=== PATIENT | female | born 1995 | race Caucasian/White ===

== ENCOUNTER 2017-02-19 21:02 | Inpatient (IN) | payer OTHER, BC ==
[~2017-02-19] VITALS: Ht 160 cm; Wt 63.0 kg
[2017-02-19 20:56] VITALS: O2SAT 98
[2017-02-19 21:04] VITALS: BP 112/56; PULSE 89; RESP 20; TEMP 97.7; O2SAT 98
[2017-02-19] MEDS ORDERED: ceFAZolin 2 GM PREMIX 50 ML ONE (21:04)
[2017-02-19] MEDS ORDERED: DIPHTH/TETANUS/ACEL PERTUSSIS (BOOSTER) 0.5 ML VIAL/PFS IM ONE ×2 (21:05→21:15)
[2017-02-19] MEDS ORDERED: SODIUM CHLOR 0.9% 1000 ML INJ 1,000 ML IV SCH (21:06)
[2017-02-19 21:12] VITALS: O2SAT 100
[2017-02-19] MEDS ORDERED: ONDANSETRON HCL 4 MG/2 ML VIAL IVP ONE (21:15)
[2017-02-19] MEDS ORDERED: ceFAZolin 2 GM PREMIX 50 ML IV ONE (21:15)
[2017-02-19] MEDS ORDERED: MORPHINE SULFATE 4 MG/ML INJ IV ONE (21:15)
[2017-02-19] MEDS ORDERED: SODIUM CHLORIDE 0.9% FLUSH 10 ML FLUSH IVF PRN (21:15)
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
[2017-02-19 21:30] LABS: I-STAT POTASSIUM 3.4 MMOL/L (3.5-4.9); I-STAT SODIUM 141 MMOL/L (138-146)
[2017-02-19] MEDS ORDERED: LIDOCAINE 1%/EPINEPHrine 1:100,000 SOLN 20 ML VIAL INFIL ONE (21:30)
[2017-02-19 21:32] LABS: AUTOMATED NEUTROPHIL # 6.7 TH/MM3 (1.8-7.7); BASOPHIL % 0.3 % (0.0-2.0); EOSINOPHIL % 0.4 % (0.0-4.0); HEMATOCRIT 40.4 % (35.0-46.0); HEMO FLAGS DIFF FINAL; LYMPH % 31.4 % (9.0-44.0); LYMPHOCYTE # 3.4 TH/MM3 (1.0-4.8); MEAN CELL VOLUME 79.7 FL (80.0-100.0); MEAN CORPUSCULAR HEMOGLOBIN 27.8 PG (27.0-34.0); MEAN CORPUSCULAR HGB CONC 34.9 % (32.0-36.0); MONO % 5.3 % (0.0-8.0); NEUT % 62.6 % (16.0-70.0); PLATELET COUNT 272 TH/MM3 (150-450); RED BLOOD COUNT 5.07 MIL/MM3 (4.00-5.30); RED CELL DISTRIBUTION WIDTH 14.6 % (11.6-17.2); WHITE BLOOD COUNT 10.7 TH/MM3 (4.0-11.0)
[2017-02-19] MEDS ORDERED: SODIUM CHLORIDE 0.9% FLUSH 10 ML FLUSH IV FLUSH PRN (22:00)
[2017-02-19] MEDS ORDERED: Post-op Orders (for Pharmacy) MISC XX ONE (22:00)
[2017-02-19] MEDS ORDERED: oxyCODONE/ACETAMINOPHEN 5 MG/325 MG TAB PO PRN (22:00)
[2017-02-19] MEDS ORDERED: NALOXONE HCL 0.4 MG/ML AMP IV PRN (22:00)
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
[2017-02-19] MEDS ORDERED: IOHEXOL 350 MG/ML 10 ML VIAL (for RAD DIAG) IV ONE (22:10)
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
[2017-02-19 22:14] LABS: BACTERIA, URINE RARE /hpf; BLOOD, URINE MOD (NEG); GLUCOSE,URINE NEG (NEG); KETONE, URINE NEG (NEG); MUCUS URINE FEW /lpf (OCC); NITRITE,URINE NEG (NEG); PH, URINE 7.5 (5.0-8.5); SQUAMOUS EPITHELIAL CELL URINE <1 /hpf (0-5); URINE COLOR YELLOW (YELLW/STRAW)
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
[2017-02-19 22:15] LABS: COMMENT (UR) CATH-CULTURE IND; CULTURE IF INDICATED CATH CULTURE IND
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
[2017-02-19 22:18] LABS: APTT (PATIENT) 22.8 SEC (24.3-30.1); PROTHROMBIN TIME - PATIENT 11.4 SEC (9.8-11.6)
[2017-02-19 22:19] LABS: AMPHETAMINE, URINE NEG (NEG); BARBITURATES, URINE NEG (NEG); COCAINE, URINE NEG (NEG)
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
[2017-02-19 23:00] VITALS: BP 120/77; PULSE 104; PULSE 84; RESP 16; RESP 22; O2SAT 100; O2SAT 98
[2017-02-19] MEDS ORDERED: MORPHINE SULFATE 4 MG/ML INJ IV PUSH ONE (23:15)
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
--- NOTE | 2017-02-19 23:26 | PD ---
Physical Exam Time Seen by Provider: 23:24 Narrative I was asked by Dr. De Jesus to perform laceration repairs to the patient's bilateral anterior thighs. She has 2 lacerations to her right anterior thigh. She has one large laceration to the left medial anterior thigh. She has a large area of abrasion to the left lateral thigh with multiple small lacerations within this abrasion. Data Data Last Documented VS Vital Signs Date Time Temp Pulse Resp B/P Pulse Ox O2 Delivery O2 Flow Rate FiO2 02/19/17 21:12 100 02/19/17 21:12 Nasal Cannula 3 02/19/17 21:04 97.7 89 20 112/56 Orders Cefazolin 2 Gm Premix (Ancef 2 Gm Premix (02/19/17 21:04) Lbwo-Nyg-Efmytp (Booster) Inj (Boostrix (02/19/17 21:05) I-Stat Profile (02/19/17 21:06) I-Stat Creatinine (02/19/17 21:06) Complete Blood Count With Diff (02/19/17 21:06) Prothrombin Time / Inr (Pt) (02/19/17 21:06) Act Partial Throm Time (Ptt) (02/19/17 21:06) Type And Screen (02/19/17 21:06) Fibrinogen (02/19/17 21:06) Alcohol (Ethanol) (02/19/17 21:06) Urinalysis - C+S If Indicated (02/19/17 21:06) Chest, Single Ap (02/19/17 21:06) Pelvis, Ap Only (Routine) (02/19/17 21:06) Ct Brain W/O Iv Contrast(Rout) (02/19/17 21:06) Ct Cerv Spine W/O Contrast (02/19/17 21:06) Ct Abd/Pel W Iv Contrast(Rout) (02/19/17 21:06) Ct Thorax/ Chest W Iv Contrast (02/19/17 21:06) Ct Facial Bones W/O Iv Cont (02/19/17 21:06) Iv Access Insert/Monitor (02/19/17 21:06) Ecg Monitoring (02/19/17 21:06) Oximetry (02/19/17 21:06) Oxygen Administration (02/19/17 21:06) Urinary Catheter Insert/Apply (02/19/17 21:06) Cefazolin 2 Gm Premix (Ancef 2 Gm Premix (02/19/17 21:15) Morphine Inj (Morphine Inj) (02/19/17 21:15) Ondansetron Inj (Zofran Inj) (02/19/17 21:15) Wtzc-Yhm-Yptdqr (Booster) Inj (Boostrix (02/19/17 21:15) Sodium Chlor 0.9% 1000 Ml Inj (Ns 1000 M (02/19/17 21:06) Sodium Chloride 0.9% Flush (Ns Flush) (02/19/17 21:15) Drug Screen, Random Urine (02/19/17 21:06) Ed Urine Pregnancytest Poc (02/19/17 21:06) Femur (Ap & Lat/2vws) (02/19/17 21:09) Tibia/Fibula (Ap/Lat) (02/19/17 21:09) Ice/Cold Pack (02/19/17 21:09) Femur (Ap & Lat/2vws) (02/19/17 21:09) Lidocai-Epi 1%-1:100,000 Inj (Xylocaine- (02/19/17 21:30) Ct Thor Spine W/O Contrast (02/19/17 21:26) Ct Lumb Spine W/O Contrast (02/19/17 21:26) Admit Order (Ed Use Only) (02/19/17 21:50) Labs Laboratory Tests Test 02/19/17 02/19/17 02/19/17 21:05 21:10 21:50 Bedside Hemoglobin 13.9 G/DL Bedside Hematocrit 41.0 % Bedside Sodium 141 MMOL/L Bedside Potassium 3.4 MMOL/L Bedside Chloride 103 MMOL/L Bedside Blood Urea Nitrogen 17 MG/DL Bedside Creatinine 0.8 MG/DL Bedside Glucose 102 MG/DL Ethyl Alcohol Level LESS THAN 3 MG/DL White Blood Count 10.7 TH/MM3 Red Blood Count 5.07 MIL/MM3 Hemoglobin 14.1 GM/DL Hematocrit 40.4 % Mean Corpuscular Volume 79.7 FL Mean Corpuscular Hemoglobin 27.8 PG Mean Corpuscular Hemoglobin 34.9 % Concent Red Cell Distribution Width 14.6 % Platelet Count 272 TH/MM3 Mean Platelet Volume 8.7 FL Neutrophils (%) (Auto) 62.6 % Lymphocytes (%) (Auto) 31.4 % Monocytes (%) (Auto) 5.3 % Eosinophils (%) (Auto) 0.4 % Basophils (%) (Auto) 0.3 % Neutrophils # (Auto) 6.7 TH/MM3 Lymphocytes # (Auto) 3.4 TH/MM3 Monocytes # (Auto) 0.6 TH/MM3 Eosinophils # (Auto) 0.0 TH/MM3 Basophils # (Auto) 0.0 TH/MM3 CBC Comment DIFF FINAL Differential Comment Prothrombin Time 11.4 SEC Prothromb Time International 1.0 RATIO Ratio Activated Partial 22.8 SEC Thromboplast Time Fibrinogen 175 mg/dL Blood Type O NEGATIVE Antibody Screen NEGATIVE Blood Bank Comment Urine Color YELLOW Urine Turbidity CLEAR Urine pH 7.5 Urine Specific [place] 1.012 Urine Protein 30 mg/dL Urine Glucose (UA) NEG mg/dL Urine Ketones NEG mg/dL Urine Occult Blood MOD Urine Nitrite NEG Urine Bilirubin NEG Urine Urobilinogen LESS THAN 2.0 MG/DL Urine Leukocyte Esterase TRACE Urine RBC 33 /hpf Urine WBC 4 /hpf Urine Squamous Epithelial <1 /hpf Cells Urine Amorphous Sediment RARE Urine Bacteria RARE /hpf Urine Mucus FEW /lpf Microscopic Urinalysis Comment CATH-CULTURE IND Urine Opiates Screen NEG Urine Barbiturates Screen NEG Urine Amphetamines Screen NEG Urine Benzodiazepines Screen NEG Urine Cocaine Screen NEG Urine Cannabinoids Screen NEG MDM Supervised Visit with KENZIE: No Procedures Procedure Narrative LACERATION LOCATION: Anterior left thigh LENGTH: 10 cm NUMBER OF STITCHES/LILLIE: 14 sutures REPAIR: The area of the laceration was prepped with Betadine and sterilely draped. The laceration was infiltrated with 1% lidocaine with epinephrine. The wound was copiously irrigated and explored without evidence of foreign body , tendon injury or neurovascular injury. The wound was closed using 3. 0 Ethilon. This was a single layer repair. A sterile dressing was applied. The patient was advised to keep the dressing clean and dry. Patient tolerated the procedure well. LACERATION LOCATION: Anterior left thigh LENGTH: 6 cm NUMBER OF STITCHES/LILLIE: 13 sutures REPAIR: The area of the laceration was prepped with Betadine and sterilely draped. The laceration was infiltrated with 1% lidocaine with epinephrine. The wound was copiously irrigated and explored without evidence of foreign body , tendon injury or neurovascular injury. The wound was closed using 3. 0 Ethilon and 4. 0 Ethilon. This was a single layer repair. A sterile dressing was applied. The patient was advised to keep the dressing clean and dry. Patient tolerated the procedure well. LACERATION LOCATION: Anterior right thigh LENGTH: 4 cm NUMBER OF STITCHES/LILLIE: 5 sutures REPAIR: The area of the laceration was prepped with Betadine and sterilely draped. The laceration was infiltrated with 1% lidocaine with epinephrine. The wound was copiously irrigated and explored without evidence of foreign body , tendon injury or neurovascular injury. The wound was closed using 3. 0 Ethilon. This was a single layer repair. A sterile dressing was applied. The patient was advised to keep the dressing clean and dry. Patient tolerated the procedure well. LACERATION LOCATION: Anterior right thigh LENGTH: 3 cm NUMBER OF STITCHES/LILLIE: 3 sutures REPAIR: The area of the laceration was prepped with Betadine and sterilely draped. The laceration was infiltrated with 1% lidocaine with epinephrine. The wound was copiously irrigated and explored without evidence of foreign body , tendon injury or neurovascular injury. The wound was closed using 3. 0 Ethilon. This was a single layer repair. A sterile dressing was applied. The patient was advised to keep the dressing clean and dry. Patient tolerated the procedure well. Diagnosis Primary Impression: Multiple closed pelvic fractures without disruption of pelvic [place] Qualified Code: S32.82XA - Multiple closed fractures of pelvis without disruption of pelvic ring, initial encounter Additional Impressions: Closed left clavicular fracture Qualified Code: S42.022A - Closed displaced fracture of shaft of left clavicle , initial encounter Left rib fracture Scripts No Active Prescriptions or Reported Meds Yoly Monteiro Feb 19, 2017 23:26
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
[2017-02-20] VITALS (15 sets, daily range): BP systolic 109–121; BP diastolic 62–80; PULSE 86–112; RESP 16–20; TEMP 97.1–98.9; O2SAT 97–100
[2017-02-20] MEDS: SODIUM CHLOR 0.9% 1000 ML INJ 1,000 ML IV SCH ×3 (00:31→14:50)
[2017-02-20] MEDS: PANTOPRAZOLE SOD 40 MG DELAYED RELEASE TAB PO SCH ×2 (00:32→19:57)
[2017-02-20] MEDS: ONDANSETRON HCL 4 MG/2 ML VIAL IV PRN ×2 (03:54→14:50)
[2017-02-20 05:29] LABS: AUTOMATED NEUTROPHIL # 15.6 TH/MM3 (1.8-7.7); HEMO FLAGS DIFF FINAL; LYMPH % 3.1 % (9.0-44.0); LYMPHOCYTE # 0.5 TH/MM3 (1.0-4.8); MEAN CELL VOLUME 80.8 FL (80.0-100.0); MEAN CORPUSCULAR HEMOGLOBIN 26.6 PG (27.0-34.0); MEAN CORPUSCULAR HGB CONC 32.9 % (32.0-36.0); MONO % 4.8 % (0.0-8.0); NEUT % 92.1 % (16.0-70.0); PLATELET COUNT 198 TH/MM3 (150-450); RED BLOOD COUNT 4.71 MIL/MM3 (4.00-5.30); RED CELL DISTRIBUTION WIDTH 14.4 % (11.6-17.2); WHITE BLOOD COUNT 16.9 TH/MM3 (4.0-11.0)
[2017-02-20] MEDS: MORPHINE SULFATE 4 MG/ML INJ IV PRN ×3 (05:34→21:38)
[2017-02-20 05:45] LABS: BICARBONATE 24.9 MEQ/L (21.0-32.0); POTASSIUM 3.9 MEQ/L (3.5-5.1)
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
[2017-02-20] MEDS: SODIUM CHLORIDE 0.9% FLUSH 10 ML FLUSH IV FLUSH SCH ×2 (09:07→19:58)
[2017-02-20] MEDS: BACITRACIN TOP OINT 15 GM TUBE TOPICAL SCH ×2 (09:30→19:59)
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
[2017-02-20] MEDS: DOCUSATE SODIUM 100 MG CAP PO SCH ×2 (14:51→17:59)
[2017-02-20] MEDS ORDERED: MAGNESIUM HYDROXIDE SUSP 30 ML CUP PO SCH (21:00)
[2017-02-21 01:00] VITALS: BP 118/64; PULSE 106; RESP 16; TEMP 98.7; O2SAT 96
[2017-02-21] MEDS: ONDANSETRON HCL 4 MG/2 ML VIAL IV PRN ×2 (03:30→19:41)
[2017-02-21] MEDS: MORPHINE SULFATE 4 MG/ML INJ IV PRN ×3 (03:30→19:42)
[2017-02-21] MEDS: SODIUM CHLOR 0.9% 1000 ML INJ 1,000 ML IV SCH ×3 (03:30→23:39)
[2017-02-21 04:31] VITALS: BP 110/60; PULSE 97; RESP 17; TEMP 98.4; O2SAT 98
[2017-02-21 06:20] LABS: AUTOMATED NEUTROPHIL # 8.3 TH/MM3 (1.8-7.7); BASOPHIL % 0.3 % (0.0-2.0); HEMATOCRIT 34.9 % (35.0-46.0); HEMO FLAGS DIFF FINAL; LYMPH % 10.2 % (9.0-44.0); MEAN CELL VOLUME 81.2 FL (80.0-100.0); MEAN CORPUSCULAR HEMOGLOBIN 26.8 PG (27.0-34.0); MONO % 6.5 % (0.0-8.0); PLATELET COUNT 163 TH/MM3 (150-450); RED CELL DISTRIBUTION WIDTH 14.5 % (11.6-17.2)
[2017-02-21 06:35] LABS: ALT (GPT) 81 U/L (10-53); ANION GAP 9 MEQ/L (5-15); AST (GOT) 87 U/L (15-37); BICARBONATE 22.8 MEQ/L (21.0-32.0); BLOOD UREA NITROGEN 6 MG/DL (7-18); CHLORIDE 108 MEQ/L (98-107); GLOMERULAR FILTRATION RATE 137 ML/MIN (>89); MAGNESIUM 2.1 MG/DL (1.5-2.5); POTASSIUM 3.8 MEQ/L (3.5-5.1); SODIUM (NA) 140 MEQ/L (136-145)
--- NOTE | 2017-02-21 06:37 | RADRPT ---
EXAM DATE/TIME: 02/21/2017 05:36 [facility] COMPARISON: CHEST SINGLE AP, February 19, 2017, 21:39. INDICATIONS : Short of breath. MEDICAL HISTORY : None. SURGICAL HISTORY : None. ENCOUNTER: Subsequent ACUITY: 3 days PAIN SCORE: 3/10 LOCATION: Bilateral chest FINDINGS: Fractures are again seen. Heart and mediastinum are unremarkable for technique. The lungs are clear w ithout infiltrate, nodule, or mass. There is no appreciable pleural effusion for technique. Heart a nd mediastinum are unremarkable. No definite pneumothorax is seen for technique. CONCLUSION: No acute cardiopulmonary disease. Sandi Benitez MD on February 21, 2017 at 6:34 Board Certified Radiologist. This report was verified electronically.
[2017-02-21 06:38] LABS: ALKALINE PHOSPHATASE 62 U/L (45-117); TOTAL BILIRUBIN ADULT 1.2 MG/DL (0.2-1.0)
[2017-02-21 08:00] VITALS: BP 118/70; PULSE 100; RESP 16; TEMP 99; O2SAT 95
[2017-02-21] MEDS: SODIUM CHLORIDE 0.9% FLUSH 10 ML FLUSH IV FLUSH SCH ×2 (09:00→19:40)
[2017-02-21] MEDS: BACITRACIN TOP OINT 15 GM TUBE TOPICAL SCH ×2 (10:40→19:52)
[2017-02-21] MEDS: DOCUSATE SODIUM 100 MG CAP PO SCH ×2 (10:40→12:18)
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
[2017-02-21 12:00] VITALS: BP 119/75; PULSE 109; RESP 17; TEMP 98.4; O2SAT 97
[2017-02-21] MEDS: ENOXAPARIN SODIUM 30 MG/0.3 ML SYRINGE SQ SCH (12:18)
[2017-02-21 16:00] VITALS: BP 118/72; PULSE 102; RESP 15; TEMP 99.5; O2SAT 96
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
[2017-02-21] MEDS: DOCUSATE SODIUM 50 MG/SENNA 8.6 MG TAB PO SCH (19:40)
[2017-02-21] MEDS: PANTOPRAZOLE SOD 40 MG DELAYED RELEASE TAB PO SCH (19:46)
[2017-02-21 20:00] VITALS: BP 123/78; PULSE 99; RESP 16; TEMP 97.6; O2SAT 97
[2017-02-22] VITALS: BP 113/73; PULSE 90; RESP 16; TEMP 97.3; O2SAT 98
[2017-02-22] MEDS: ENOXAPARIN SODIUM 30 MG/0.3 ML SYRINGE SQ SCH
[2017-02-22] MEDS: MORPHINE SULFATE 4 MG/ML INJ IV PRN ×2 (03:00→07:51)
[2017-02-22 04:52] LABS: BICARBONATE 24.2 MEQ/L (21.0-32.0); POTASSIUM 3.7 MEQ/L (3.5-5.1)
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
[2017-02-22] MEDS: SODIUM CHLORIDE 0.9% FLUSH 10 ML FLUSH IV FLUSH SCH (07:41)
[2017-02-22] MEDS: SODIUM CHLOR 0.9% 1000 ML INJ 1,000 ML IV SCH (07:50)
[2017-02-22] MEDS: DOCUSATE SODIUM 50 MG/SENNA 8.6 MG TAB PO SCH (07:50)
[2017-02-22] MEDS: BACITRACIN TOP OINT 15 GM TUBE TOPICAL SCH (07:51)
[2017-02-22 08:00] VITALS: BP 115/73; PULSE 95; RESP 20; TEMP 98; O2SAT 97
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
[2017-02-22] MEDS ORDERED: LACTULOSE SYRUP 20 GM/30 ML CUP PO SCH (09:00)
[2017-02-22] MEDS ORDERED: ENOXAPARIN SODIUM 30 MG/0.3 ML SYRINGE SQ SCH (09:00)
[2017-02-22 12:00] VITALS: BP 120/53; PULSE 91; RESP 20; TEMP 99.7; O2SAT 99
--- NOTE | 2017-02-22 12:12 | HHI.PR ---
Subjective Subjective Notes OOB in chair Still confused Pain controlled Objective Vitals/I&O Vital Signs Date Time Temp Pulse Resp B/P Pulse Ox O2 Delivery O2 Flow Rate FiO2 02/22/17 08:00 98.0 95 20 115/73 97 02/20/17 08:52 Room Air 02/20/17 07:33 21 02/20/17 04:04 2 Labs Laboratory Tests Test 02/22/17 03:20 Sodium Level 143 Potassium Level 3.7 Chloride Level 111 Carbon Dioxide Level 24.2 Anion Gap 8 Blood Urea Nitrogen 7 Creatinine 0.53 Estimat Glomerular Filtration 146 Rate Random Glucose 88 Calcium Level 8.5 Date/Time Procedure Status Source Growth 02/20/17 09:00 Cancelled Nasopharyngeal 02/19/17 21:50 Urine Culture - Final Complete Urine Catheterized Urine NO GROWTH IN 48 HOURS. Radiology Last Impressions Chest X-Ray 02/21/17 0600 Signed Impressions: Service Date/Time: February 05:36 - CONCLUSION: No acute cardiopulmonary disease. Sandi Benitez MD Thoracic Spine CT 02/19/172125 Signed Impressions: Service Date/Time: Sunday, February 19, 2017 22:10 - CONCLUSION: Pelvic fractures and multiple rib fractures discussed on the patient's prior CT examinations and thoracic spine portion is unremarkable. Sandi Benitez MD Lumbar Spine CT 02/19/172125 Signed Impressions: Service Date/Time: Sunday, February 19, 2017 22:10 - CONCLUSION: 1. Central disc bulge and protrusions at L3-4, L4-5 and L5-S1 with effacement of the anterior CSF space L5-S1. 2. Sacral fracture discussed on the patient's CT pelvis. Sandi Benitez MD Tibia/Fibula X-Ray 02/19/172108 Signed Impressions: Service Date/Time: Sunday, February 19, 2017 21:25 - CONCLUSION: 1. Right tibia and fibula are intact. 2. Small soft tissue glass fragment anterolaterally of the upper leg. Randy Whitlock MD Femur X-Ray 02/19/172108 Signed Impressions: Service Date/Time: Sunday, February 19, 2017 21:37 - CONCLUSION: A total of 5 radiopaque foreign bodies in the soft tissues medially of the mid to distal left thigh. The femur is intact. Randy Whitlock MD Pelvis X-Ray 02/19/172105 Signed Impressions: Service Date/Time: Sunday, February 19, 2017 21:34 - CONCLUSION: 1. Displaced fractures in the mid portions of the right superior and inferior pubic rami. 2. Mildly comminuted, minimally displaced parasymphyseal fracturing of the left pubic bone. 3. Mild widening of the pubic symphysis and questionable mild widening of both sacroiliac joints. 4. Hips are intact and normally aligned. Randy Whitlock MD Maxillofacial CT 02/19/172105 Signed Impressions: Service Date/Time: Sunday, February 19, 2017 22:03 - CONCLUSION: Right cheek/periorbital contusion. No facial fracture. Randy Whitlock MD Head CT 02/19/172105 Signed Impressions: Service Date/Time: Sunday, February 19, 2017 22:03 - CONCLUSION: No bleed or other acute intracranial abnormality demonstrated. Randy Whitlock MD Chest CT 02/19/172105 Signed Impressions: Service Date/Time: Sunday, February 19, 2017 22:10 - CONCLUSION: 1. Small pulmonary contusions of both upper lobes. No hemothorax or pneumothorax. 2. Minimally to mildly displaced right first and second rib fractures. Also a displaced and overlapping fracture of the midshaft of the left clavicle. Randy Whitlock MD Cervical Spine CT 02/19/172105 Signed Impressions: Service Date/Time: Sunday, February 19, 2017 22:03 - CONCLUSION: Intact cervical spine. Randy Whitlock MD Abdomen/Pelvis CT 02/19/172105 Signed Impressions: Service Date/Time: Sunday, February 19, 2017 22:10 - CONCLUSION: 1. No visceral organ injury. 2. Sacral and pelvic fractures as above. Intact bladder. Randy Whitlock MD Narrative Exam GENERAL: 21 year old well-nourished, well developed female OOB in chair. SKIN: Warm and dry. RIGHT facial edema noted. HEAD: Normocephalic. EYES: RIGHT eye with periorbital edema and ecchymosis. ENT: No nasal bleeding or discharge. Mucous membranes pink and moist. NECK: Trachea midline. No JVD. CARDIOVASCULAR: Regular rate and rhythm. RESPIRATORY: No accessory muscle use. Lungs clear and diminished to auscultation. Breath sounds equal bilaterally. GASTROINTESTINAL: Abdomen soft, non-tender, nondistended. + BS. MUSCULOSKELETAL: Extremities without cyanosis, or edema. No obvious deformities. MAEW. NEUROLOGICAL: Awake and confused, oriented x2. Normal speech. A/P Assessment and Plan INJURIES: LEFT clavicle fx (non-op) RIGHT rib fxs (1,2) Pulmonary contusions L3-4, L4-5, L5-S1 - bulge and protrusions Multiple Pelvic fx (non -op) Concussion Diet: Regular, poor appetite Pulm: IS, encouraged use Pain: Percocet. Morphine IV. Activity: OOB. PT and OT ordered. (WBAT LLE; 50% WB RLE) GI: Protonix Bowel: Suad-colace 2 tabs. Lactulose. No BM yet. DVT: SCD's, Lovenox 30 BID LEFT clavicle fx Orthopedics consulted Nonoperative management Pain control NWB LUE- maintain sling OT RIGHT rib fxs, Pulmonary contusions Supportive care Pulmonary toileting CXR shows no cardiopulmonary disease Pain control OOB Multiple Pelvic fxs Orthopedics consulted Nonoperative management WBAT LLE; 50% WB RLE PT - OOB Pain control Concussion Supportive care Neuro checks Neuropsychology consult RIGHT orbit contusion Ophthalmology consulted F/U as outpatient Case management consulted to assist with discharge planning. [facility] consulted for possible placement. Christ Friedman Feb 22, 2017 12:12
[2017-02-22] MEDS ORDERED: OXYC1TAB63 PO (14:07)
[2017-02-22] MEDS ORDERED: ENOX30P SQ (14:07)
[2017-02-22] MEDS ORDERED: SENN1TAB PO (14:07)
[2017-02-22] MEDS ORDERED: Lactulose Liq PO (14:07)
[2017-02-22 14:43] VITALS: TEMP 97.9
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
[2017-03-04] MEDS ORDERED: QUAD CANE/SMALL1 MI1 (13:47)
[2017-03-04] MEDS ORDERED: WHEEMIS3 (13:47)
[2017-03-04] MEDS ORDERED: COMMODE 3-IN-11 MIS (13:47)
[2017-03-06] MEDS ORDERED: SENN1TAB PO (08:43)
[2017-03-06] MEDS ORDERED: ALPR.25 PO (08:43)
[2017-03-06] MEDS ORDERED: ACET1TAB86 PO (08:43)
[2017-03-06] MEDS ORDERED: PANT40TA3 PO (08:43)
[2017-03-06] MEDS ORDERED: OXYC-392 PO (08:43)
[2017-03-06] MEDS ORDERED: LIDO5DIS5 T-DERMAL (10:34)
== END 2017-02-22 15:34 | disposition short-term general hospital (02) | DRG 964 ==
LOC: NEPE 21:02 → NEDA 21:52 → NEDH 02-20 02:09 → N03A 02-20 07:55 → N07B 02-20 12:30
PROVIDERS: ADMIT Surgery; ATTEND Surgery
PROC: 0HQJXZZ Repair Left Upper Leg Skin, External Approach (ICD-10-PCS; principal; 2017-02-19)
PROC: 0HQHXZZ Repair Right Upper Leg Skin, External Approach (ICD-10-PCS; 2017-02-19)
DX: S27.321A Contusion of lung, unilateral, initial encounter (principal); S32.10XA Unspecified fracture of sacrum, initial encounter for closed fracture; S22.41XA Multiple fractures of ribs, right side, initial encounter for closed fracture; S32.591A Other specified fracture of right pubis, initial encounter for closed fracture; S42.022A Displaced fracture of shaft of left clavicle, initial encounter for closed fracture; S32.592A Other specified fracture of left pubis, initial encounter for closed fracture; S06.0X9A Concussion with loss of consciousness of unspecified duration, initial encounter; S27.322A Contusion of lung, bilateral, initial encounter; F42.9 Obsessive-compulsive disorder, unspecified; S00.83XA Contusion of other part of head, initial encounter; S00.11XA Contusion of right eyelid and periocular area, initial encounter; M51.26 Other intervertebral disc displacement, lumbar region; M51.27 Other intervertebral disc displacement, lumbosacral region; S71.112A Laceration without foreign body, left thigh, initial encounter; S71.111A Laceration without foreign body, right thigh, initial encounter; V47.0XXA Car driver injured in collision with fixed or stationary object in nontraffic accident, initial encounter; Y92.9 Unspecified place or not applicable
CPT/HCPCS: 12006; 70450; 70486; 71010; 71260; 72125; 72128; 72131; 72170; 73552; 73590; 74177; 80048; 80053; 80307; 81001; 82435; 82565; 82947; 83735; 84132; 84295; 84520; 84703; 85025; 85384; 85610; 85730; 86850; 86900; 86901; 87086; 87641; 90471; 90715; 94150; 96374; 96375; J0690; J1650; J2270; J2405; J7030; Q9967

== ENCOUNTER 2017-03-07 07:16 | Observation (INO) | payer OTHER, BC ==
[~2017-03-07] VITALS: Ht 160 cm; Wt 59.1 kg
[~2017-03-07 07:16] MED LIST: ACET1TAB86 PO; ALPR.25 PO; COMMODE 3-IN-11 MIS; LIDO5DIS5 T-DERMAL; OXYC-392 PO; PANT40TA3 PO; QUAD CANE/SMALL1 MI1; SENN1TAB PO; WHEEMIS3
[2017-03-07] MEDS ORDERED: ALPR.25 PO (07:42)
[2017-03-07] MEDS ORDERED: ZOFR4TAB PO (07:42)
[2017-03-07] MEDS ORDERED: OXYC1CAP PO (07:42)
[2017-03-07] MEDS ORDERED: LIDO5DIS5 TD (07:42)
[2017-03-07 07:59] VITALS: BP 87/68; PULSE 88; RESP 18; TEMP 97.6; O2SAT 100
[2017-03-07] MEDS ORDERED: METOPROLOL TARTRATE 25 MG TAB PO PRN (08:30)
[2017-03-07] MEDS ORDERED: INSULIN HUMAN REGULAR 1,000 UNITS/10 ML VIAL SQ PRN (08:30)
[2017-03-07] MEDS ORDERED: CHLORHEXIDINE GLUCONATE 2 % 1 PACK (2 CLOTHS) TOPICAL PRN (08:30)
[2017-03-07] MEDS ORDERED: POVIDONE IODINE 5% (ANTISEPSIS KIT) 4 APPLICATIONS EACH NARE PRN (08:30)
[2017-03-07] MEDS ORDERED: LACTATED RINGER'S 1000 ML IV PRN (08:30)
[2017-03-07] MEDS ORDERED: SODIUM CHLORID 0.9% 500 ML IV PRN (08:30)
[2017-03-07] MEDS ORDERED: FAMOTIDINE 20 MG/2 ML VIAL ONE (09:24)
[2017-03-07] MEDS ORDERED: MIDAZOLAM HCL 2 MG/2 ML VIAL ONE (09:24)
[2017-03-07] MEDS ORDERED: ACETAMINOPHEN 1000 MG/100 ML VIAL IV ONE (10:12)
[2017-03-07] MEDS ORDERED: DEXAMETHASONE SOD PHOS 4 MG/ML VIAL ONE (10:12)
[2017-03-07] MEDS ORDERED: fentaNYL CITRATE 250 MCG/5 ML AMP ONE (10:12)
[2017-03-07] MEDS ORDERED: ceFAZolin INJ 1,000 MG VIAL ONE (10:28)
[2017-03-07] MEDS ORDERED: GENTAMICIN SULFATE 80 MG/2 ML VIAL ONE (10:28)
[2017-03-07] MEDS ORDERED: SODIUM CHLOR 0.9% 250 ML INJ 250 ML ONE (10:28)
[2017-03-07] MEDS ORDERED: VANCOMYCIN HCL 1000 MG VIAL ONE (10:28)
[2017-03-07] MEDS ORDERED: BUPIVACAINE HCL PF 0.25% 30 ML VIAL ONE (10:49)
--- NOTE | 2017-03-07 11:27 | PD.OP ---
cc: Travis Maravilla MD Operative Report Date of Surgery: Mar 07, 2017 Preoperative Diagnosis: Displaced left clavicle fracture Postoperative Diagnosis: Procedure: Open reduction and fixation left clavicle Anesthesia: Gen. Surgeon: Travis Maravilla Ring Cutter Lathe Operator(s): SOURAV Sorensen PA-C The surgical procedure was assisted by my physician central supply assistant. My P.A. presence was necessary throughout this case for the manipulation and positioning of the surgical extremity. My P.A. was assisting me throughout the duration of this procedure. The skill set of a physician central supply assistant was medically necessary to complete this procedure. During the surgical case the surgical pathologist was working at the back table and the physician central supply assistant was directly assisting me. Operation and Findings: Patient was seen and evaluated preoperatively. She initially presented with a minimally displaced left clavicle fracture. Follow-up x-rays revealed significant displacement of the fracture. The risks and benefits of surgical and nonsurgical options were discussed in detail and informed consent was obtained for surgery. Patient was brought to the operating room and placed on or table. IV sedation and GETA were administered by anesthesiologist. Antibiotics were given prior to incision. Operative arm and shoulder were prepped with alcohol followed by Hibiclens and draped usual sterile fashion. Timeout procedure was performed. Procedure began with a 4 inch incision over the anterior clavicle. Subcutaneous tissue was dissected with Bovie. The fracture was now visualized. Soft tissue was retracted. Fracture was cleaned with curettes. Attention was now turned to reduction. Gentle traction was applied and fracture tenaculums were used to reduce the fracture. Fracture was manipulated to achieve excellent reduction. Multiplanar fluoroscopy confirmed well aligned fracture. K wires were used to hold provisional fixation. An ITS clavicle plate was selected. Plate was provisionally held in place K wires. 3.5 cortical screws were used to compress plate to bone. Fluoroscopy confirmed appropriate plate placement and fracture reduction. Multiple screws were placed on each side of the fracture. All Screws were predrilled and premeasured for appropriate length. Care was taken to avoid injury to neurovascular structures. Final fluoroscopy revealed well aligned fracture with well-placed hardware. Wound was thoroughly irrigated. Fascia was closed with #1 Vicryl, subcutaneous tissues closed with 3-0 Vicryl, and skin was closed with elaina. Sterile dressings were applied. Patient was placed into a sling. Patient was awakened and transferred to recovery in stable condition. Needle and sponge counts were correct. Travis Maravilla MD Mar 07, 2017 11:27
[2017-03-07] MEDS ORDERED: SODIUM CHLORIDE 0.9% FLUSH 5 ML FLUSH IVF PRN (11:30)
[2017-03-07] MEDS ORDERED: diphenhydrAMINE HCL 25 MG CAP PO PRN (11:30)
[2017-03-07] MEDS ORDERED: ONDANSETRON HCL 4 MG/2 ML VIAL IVP PRN (11:30)
[2017-03-07] MEDS ORDERED: DO NOT ADM ANY ANTICOAGULANT DRUGS PRN (11:41)
[2017-03-07] MEDS ORDERED: *diphenhydrAMINE HCL 50 MG/ML VIAL PERIprocedural Use ONLY ONE (11:54)
[2017-03-07] MEDS ORDERED: MORPHINE SULFATE 4 MG/ML INJ ONE (11:58)
[2017-03-07] MEDS ORDERED: PROPOFOL 200 MG/20 ML AMP IV ONE (12:00)
[2017-03-07] MEDS ORDERED: PHENYLEPH/NS 1000 MCG/10 ML SYR IV ONE (12:00)
[2017-03-07] MEDS ORDERED: LACTATED RINGER'S 1000 ML INJ 1,000 ML IV ONE (12:00)
[2017-03-07] MEDS ORDERED: NEOSTIGMINE 3 MG/3 ML SYR IV ONE (12:00)
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
[2017-03-07] MEDS ORDERED: HYDR-3288 PO (12:11)
[2017-03-07] MEDS ORDERED: *morphine SULFATE 8 MG/ML PERIprocedure ONLY ONE (12:16)
[2017-03-07] MEDS ORDERED: diphenhydrAMINE HCL 50 MG/ML VIAL ONE (12:16)
[2017-03-07] MEDS ORDERED: diphenhydrAMINE HCL 50 MG/ML VIAL IV PUSH ONE (13:15)
[2017-03-07] MEDS: CALCIUM/VITAMIN D 250 MG/125 U TAB PO SCH ×2 (13:34→17:06)
[2017-03-07] MEDS: ACETAMINOPHEN/HYDROcodone 325 MG/10 MG TAB PO PRN ×3 (13:34→19:46)
[2017-03-07 13:40] VITALS: BP 112/76; PULSE 76; RESP 20; TEMP 96.8; O2SAT 99
--- NOTE | 2017-03-07 14:41 | RADRPT ---
EXAM DATE/TIME: 03/07/2017 11:09 [place] COMPARISON: CLAVICLE LEFT, February 28, 2017, 15:29. INDICATIONS : ORIF left clavicle. MEDICAL HISTORY : None. SURGICAL HISTORY : None. ENCOUNTER: Subsequent ACUITY: 2 weeks PAIN SCORE: Non-responsive. LOCATION: Left clavicle. FINDINGS: Two view examination of the left clavicle demonstrates postsurgical changes following open reduction and internal fixation of a left clavicular fracture. The fracture has been stabilized with an extra m edullary plate and multiple fixation screws. There is good apposition and alignment of the fracture f ragments. CONCLUSION: Satisfactory postop appearance of the left clavicle following ORIF of a displaced fracture. Hunter Keen MD on March 07, 2017 at 14:38 Board Certified Radiologist. This report was verified electronically.
[2017-03-07 16:45] VITALS: BP 122/89; PULSE 91; RESP 20; TEMP 95.9; O2SAT 100
[2017-03-07] MEDS: MORPHINE SULFATE 4 MG/ML INJ IV PUSH PRN (17:03)
[2017-03-07] MEDS: ceFAZolin 2 GM PREMIX 50 ML IV SCH (17:06)
[2017-03-07 19:45] VITALS: BP 116/72; PULSE 94; RESP 17; TEMP 98.1; O2SAT 99
[2017-03-07] MEDS: DOCUSATE SODIUM 50 MG/SENNA 8.6 MG TAB PO SCH (19:45)
[2017-03-07] MEDS: SODIUM CHLORIDE 0.9% FLUSH 5 ML FLUSH IVF SCH (19:46)
[2017-03-07 23:30] VITALS: BP 111/62; PULSE 69; RESP 16; TEMP 97.1; O2SAT 99
[2017-03-08] MEDS: ceFAZolin 2 GM PREMIX 50 ML IV SCH ×2 (01:41→08:57)
[2017-03-08] MEDS: ACETAMINOPHEN/HYDROcodone 325 MG/10 MG TAB PO PRN ×3 (01:44→15:53)
[2017-03-08 04:00] VITALS: BP 114/63; PULSE 75; RESP 16; TEMP 98.1; O2SAT 98
[2017-03-08] MEDS ORDERED: HYDR-3366 PO (06:41)
--- NOTE | 2017-03-08 07:05 | PD.ORT.PN ---
Subjective Subjective Remarks Pain controlled. Pain improving. Objective Vitals Vital Signs Date Time Temp Pulse Resp B/P Pulse Ox O2 Delivery O2 Flow Rate FiO2 03/08/17 04:00 98.1 75 16 114/63 98 03/07/17 23:30 97.1 69 16 111/62 99 03/07/17 19:45 98.1 94 17 116/72 99 03/07/17 17:50 17 03/07/17 16:45 95.9 91 20 122/89 100 03/07/17 13:40 96.8 76 20 112/76 99 03/07/17 12:45 98.0 76 17 113/76 96 Room Air 03/07/17 12:30 78 17 112/76 98 Room Air 03/07/17 12:15 75 16 117/73 98 Room Air 03/07/17 12:00 80 16 113/70 98 Room Air 03/07/17 11:47 98.1 89 16 107/62 100 Simple Mask 03/07/17 07:59 97.6 88 18 87/68 100 I/O 03/07/17 03/07/17 03/07/17 03/08/17 03/08/17 03/08/17 07:00 15:00 23:00 07:00 15:00 23:00 Intake Total 1700 ml 480 ml 240 ml Output Total 50 ml Balance 1650 ml 480 ml 240 ml Intake Oral 480 ml 240 ml IV Total 200 ml Other 1500 ml Output Estimated Blood Loss 50 ml # Voids 1 1 # Bowel Movements 0 0 Imaging Last 72 hours Impressions Clavicle X-Ray 03/07/17 0000 Signed Impressions: Service Date/Time: February 11:09 - CONCLUSION: Satisfactory postop appearance of the left clavicle following ORIF of a displaced fracture. Hunter Keen MD Objective Remarks Left upper extremity: Incision clean dry and intact over clavicle. No pain with elbow wrist range of motion. Intact sensation over the radial ulnar and median nerve distributions. Full extension and flexion of all fingers Bilateral lower extremities: No pain with passive range of motion of hips. Full range of motion of knee and ankle. Distally intact sensation with good capillary refills. Strong dorsiflexion plantar flexion of bilateral feet. Assessment & Plan Assessment and Plan Left clavicle fracture ORIF POD 1 Sling and swath at all times Physical therapy for pendulum swings Home health care for dressing changesPrimapore 10 days then begin adding Xeroform beginning POD 10 daily Pubic rami fractures nonoperative treatment Weightbearing as tolerated bilateral lower extremities Plan for discharge is afternoon to home with home health care Hua Kohli Jr. Mar 08, 2017 07:05
--- NOTE | 2017-03-08 07:08 | HHI.FF ---
Face to Face Verification Diagnosis: (1) Closed left clavicular fracture (2) Multiple closed pelvic fractures without disruption of pelvic [place] Physical Therapy Gait training, Safety evaluation Right LE Weight Bearing: WB as tolerated Left LE Weight Bearing: WB as tolerated Occupational Therapy Left UE Weight Bearing: Non WB Left UE Range of Motion: Pendular Nursing Nursing: Dressing changes Dressing Changes: Xeroform (beginning 03/17/17 daily), Coverderm/[place] ( every other day and begin daily starting POD 10) I have seen patient Trisha Reynolds on 03/08/17. My clinical findings support the need for the requested home health care services because: Limited ability to care for self I certify that my clinical findings support that this patient is homebound because: Post-op weakness Hua Kohli Jr. Mar 08, 2017 07:08
[2017-03-08 08:00] VITALS: BP 118/71; PULSE 78; RESP 16; TEMP 96.7; O2SAT 98
[2017-03-08] MEDS: SODIUM CHLORIDE 0.9% FLUSH 5 ML FLUSH IVF SCH (08:43)
[2017-03-08] MEDS: CALCIUM/VITAMIN D 250 MG/125 U TAB PO SCH ×2 (08:43→13:15)
[2017-03-08] MEDS: DOCUSATE SODIUM 50 MG/SENNA 8.6 MG TAB PO SCH (08:43)
[2017-03-08] MEDS: MORPHINE SULFATE 4 MG/ML INJ IV PUSH PRN (08:55)
[2017-03-08 12:00] VITALS: BP 113/69; PULSE 90; RESP 16; TEMP 97.9; O2SAT 98
== END 2017-03-08 16:06 | disposition home or self-care (01) ==
LOC: HSDI 07:45 → UNDOADMIN 07:45 → N06B 13:03 → HSDI 13:03
PROVIDERS: ADMIT Orthopaedic Surgery Orthopaedic Trauma; ATTEND Orthopaedic Surgery Orthopaedic Trauma
DX: S42.002A Fracture of unspecified part of left clavicle, initial encounter for closed fracture (principal); F41.9 Anxiety disorder, unspecified; V89.2XXA Person injured in unspecified motor-vehicle accident, traffic, initial encounter
CPT/HCPCS: 00450; 23515; 73000; 76000; 97110; 97116; 97162; 97166; C1713; G0378; G8987; G8988; J0131; J0690; J1100; J1200; J1580; J2250; J2270; J2370; J2710; J3010; J3370; J7050; J7120